=== PATIENT | male | born 1955 | race Caucasian/White ===

== ENCOUNTER → 2016-10-10 | Outpatient (CLI) | payer MEDICARE ==
--- NOTE | 2016-10-11 10:00 | ECHOF ---
Referral Reason:R06.09 Dyspnea on exertion MEASUREMENTS -------- HEIGHT: 188.0 cm WEIGHT: 142.9 kg BP: 116/82 RVIDd: 3.2 cm (< 3.3) IVSd: 1.3 cm (0.6 - 1.1) LVIDd: 6.8 cm (3.9 - 5.3) LVPWd: 1.3 cm (0.6 - 1.1) EDV(Teich): 237 ml IVSs: 1.4 cm LVIDs: 4.9 cm LVPWs: 1.6 cm %IVS Thck: 14 % ESV(Teich): 113 ml EF(Teich): 52 % %FS: 28 % SV(Teich): 124 ml LALs A4C: 5.2 cm LAAs A4C: 13.9 cm LAESV A-L A4C: 31 ml LAESV MOD A4C: 31 ml LALs A2C: 4.6 cm LAAs A2C: 12.5 cm LAESV A-L A2C: 28 ml LAESV MOD A2C: 27 ml LAESV(A-L): 32 ml LAESV Index (A-L): 11.97 ml/m Ao Diam: 4.8 cm (2.0 - 3.7) AV Cusp: 2.3 cm (1.5 - 2.6) LA Diam: 3.8 cm (2.7 - 3.8) MV E Yadiel: 0.49 m/s MV DecT: 347 ms MV Dec Hood: 1.4 m/s MV A Yadiel: 0.74 m/s MV E/A Ratio: 0.67 MV PHT: 101 ms E/E': 7.18 E': 0.07 m/s AV Vmax: 1.10 m/s AV maxP.86 mmHg FINDINGS -------- Resting bradycardia (HR<60bpm). This was a technically adequate study. The left ventricle is moderately dilated. There is mild concentric left ventricular hypertrophy. Overall left ventricular systolic function is low-normal with, an EF between 50 - 55 %. The right ventricle is normal in size and function. Normal LA size by volume 22+/-6 ml/m2. The right atrium is normal in size. Aortic valve is trileaflet and is mildly thickened. There is no evidence of aortic regurgitation. There is no evidence of aortic stenosis. The mitral valve leaflets are mildly thickened. There is trace mitral regurgitation. Trace tricuspid regurgitation present. There is no evidence of pulmonary hypertension. The right ventricular systolic pressure, as measured by Doppler, is {RVSP}. The pulmonic valve was not well visualized. The aortic root is mildy dilate, measuring 4.0 cm. IVC Not well visulized. CONCLUSIONS -------- 1. Resting bradycardia (HR<60bpm). 2. Trace tricuspid regurgitation present. 3. There is no evidence of pulmonary hypertension. 4. The right ventricular systolic pressure, as measured by Doppler, is {RVSP}. 5. The pulmonic valve was not well visualized. 6. The aortic root is mildy dilated. 7. IVC Not well visulized. 8. This was a technically adequate study. 9. The left ventricle is moderately dilated. 10. There is mild concentric left ventricular hypertrophy. 11. Overall left ventricular systolic function is low-normal with, an EF between 50 - 55 %. 12. Normal LA size by volume 22+/-6 ml/m2. 13. Aortic valve is trileaflet and is mildly thickened. 14. The mitral valve leaflets are mildly thickened. 15. There is trace mitral regurgitation. SOCIAL SECURITY ASSESSOR: Patrice Miller RDCS
== END | disposition home or self-care (01) ==
LOC: RADECHMAIN 15:59
PROVIDERS: ATTEND Family Medicine
DX: I51.7 Cardiomegaly (principal)
CPT/HCPCS: 93306

== ENCOUNTER 2017-05-08 07:53 | Day surgery (SDC) | payer MEDICARE ==
[2017-05-06 10:35] VITALS: BMI 36.6
[~2017-05-08 07:53] MED LIST: LACTATED RINGERS 1,000 ML IV SCH
[2017-05-08 09:26] VITALS: TEMP 97.4
[2017-05-08 09:31] LABS: Glucose,Whole Blood 97 mg/dL (75-99)
[2017-05-08] MEDS ORDERED: PROPOFOL 10 MG/ML 20 ML VIAL IV ONE (10:25)
--- NOTE | 2017-05-08 10:52 | P.PCN ---
Date of Procedure: 05/08/17 Procedure(s) Performed: BRIEF HISTORY: Patient is a 61-year-old pleasant white male, scheduled for an elective colonoscopy as a part of value should of prior history of colon polyps. Last colonoscopy was 4 years ago. PROCEDURE PERFORMED: Colonoscopy with snare polypectomy PREOPERATIVE DIAGNOSIS: History of colon polyps. IV sedation per Anesthesia. PROCEDURE: After informed consent was obtained, the patient, was brought into the endoscopy unit. IV sedation was administered by Anesthesia under continuous monitoring. Digital rectal examination was normal. Initially the Olympus CF- 160 flexible video colonoscope was then inserted in the rectum, gradually advanced into the cecum without any difficulty. Careful examination was performed as the scope was gradually being withdrawn. Ileocecal valve and the appendiceal orifice were visualized and appeared normal. Prep was fair. The base of the cecum there was a 1 cm polyp removed by snare polypectomy. The rest of the mucosa of the cecum, ascending colon, transverse colon, appeared normal. In the descending colon there was another 1 cm broad-based polyp removed by snare polypectomy. The rest of the descending colon, sigmoid colon, and rectum appeared normal. Retroflexion was performed in the rectum and no lesions were seen. The patient tolerated the procedure well. IMPRESSION: 1 cm cecal polyp status post snare polypectomy 1 cm descending colon polyp status post polypectomy RECOMMENDATIONS: Findings of this examination were discussed with the patient as his family. He was advised to follow with the biopsy results. If the biopsy shows a tubular adenoma he can have a repeat colonoscopy in 3-5 years.
[2017-05-08 10:57] VITALS: RESP 16
[2017-05-08 11:14] VITALS: BP 125/52; PULSE 59
== END 2017-05-08 11:33 | disposition home or self-care (01) ==
LOC: ORWHC2ENDO 07:53
PROVIDERS: ATTEND Internal Medicine Gastroenterology
DX: Z12.11 Encounter for screening for malignant neoplasm of colon (principal); D12.0 Benign neoplasm of cecum; D12.4 Benign neoplasm of descending colon; I25.10 Atherosclerotic heart disease of native coronary artery without angina pectoris; I25.2 Old myocardial infarction; I10 Essential (primary) hypertension; E78.5 Hyperlipidemia, unspecified; R56.9 Unspecified convulsions; G47.33 Obstructive sleep apnea (adult) (pediatric); K21.9 Gastro-esophageal reflux disease without esophagitis; F39 Unspecified mood [affective] disorder; M10.9 Gout, unspecified; Z86.010 Personal history of colon polyps; Z88.6 Allergy status to analgesic agent; Z88.8 Allergy status to other drugs, medicaments and biological substances; Z79.891 Long term (current) use of opiate analgesic; Z79.899 Other long term (current) drug therapy; Z86.73 Personal history of transient ischemic attack (TIA), and cerebral infarction without residual deficits; Z87.891 Personal history of nicotine dependence
CPT/HCPCS: 45385; 88305; J2704

== ENCOUNTER 2017-10-30 09:47 | Day surgery (SDC) | payer MEDICARE ==
[2017-10-29 10:16] VITALS: BMI 32.1
[2017-10-30 10:57] VITALS: RESP 16; TEMP 98
[2017-10-30] MEDS ORDERED: LIDOCAINE 1% 20 ML VIAL (10MG/ML) FOR IV START INTRADERMA ONE (11:08)
[2017-10-30] MEDS ORDERED: PROPOFOL 10 MG/ML 20 ML VIAL IV ONE (11:31)
--- NOTE | 2017-10-30 11:43 | P.PCN ---
Date of Procedure: 10/30/17 Procedure(s) Performed: BRIEF HISTORY: Patient is a 62-year-old, pleasant, male, scheduled for an upper endoscopy as a part of evaluation of epigastric discomfort, post prior abdominal bloating and chest pain on and off for the last 2 months duration. He has long-standing history of GERD and has been on omeprazole 40 mg twice daily. Because of the upper GI symptoms he scheduled for an upper endoscopy today. PROCEDURE PERFORMED: Esophagogastroduodenoscopy with biopsy. PREOPERATIVE DIAGNOSIS: Abdominal bloating, atypical chest pain and epigastric discomfort of 2 months duration. IV sedation per anesthesia. PROCEDURE: After informed consent was obtained, the patient was brought into the endoscopy unit. IV sedation was administered by Anesthesia under continuous monitoring. Initially the Olympus GIF-140 video endoscope was inserted into the mouth. Esophagus intubated without any difficulty. It was gradually advanced into the stomach and duodenum and carefully examined. The bulb and the second part of the duodenum appeared normal. She's were done from the duodenum to rule out celiac disease. The scope at this time was withdrawn to the stomach, adequately insufflated with air, and upon careful examination, mucosa of the antrum, had a small submucosal polyp that was biopsied. The body, cardia and the fundus appeared normal. There is some changes in the fundus of the stomach consistent portal gastropathy. The scope was then withdrawn into the esophagus. The GE junction was located at 39 cm from the incisors. The esophagus appeared normal. There were no erosions or ulcerations seen, biopsies were done from the esophagus and the patient tolerated the procedure well. IMPRESSION: 1. Mild gastritis and small submucosal antral polyp status post biopsy. 2. No evidence of esophagitis or peptic ulcer. RECOMMENDATIONS: The findings of this examination were discussed with the patient less his family. He will continue with omeprazole 40 mg twice daily and follow antireflux measures. He was advised to follow with the biopsy results..
[2017-10-30 12:10] VITALS: BP 132/80; PULSE 49
== END 2017-10-30 12:30 | disposition home or self-care (01) ==
LOC: ORWHC2ENDO 09:47
PROVIDERS: ATTEND Internal Medicine Gastroenterology
DX: K29.80 Duodenitis without bleeding (principal); K31.7 Polyp of stomach and duodenum; J44.9 Chronic obstructive pulmonary disease, unspecified; K21.9 Gastro-esophageal reflux disease without esophagitis; I25.10 Atherosclerotic heart disease of native coronary artery without angina pectoris; I25.2 Old myocardial infarction; I10 Essential (primary) hypertension; K29.70 Gastritis, unspecified, without bleeding; Z88.6 Allergy status to analgesic agent; Z88.8 Allergy status to other drugs, medicaments and biological substances; Z86.73 Personal history of transient ischemic attack (TIA), and cerebral infarction without residual deficits; Z79.891 Long term (current) use of opiate analgesic; Z79.899 Other long term (current) drug therapy
CPT/HCPCS: 88305; 43239; J2704

== ENCOUNTER → 2018-07-21 | Outpatient (CLI) | payer MEDICARE ==
[2018-07-15 17:12] VITALS: BMI 38.0
[2018-07-21 11:30] VITALS: BP 131/83; PULSE 48; RESP 18
--- NOTE | 2018-07-21 12:13 | P.CONS ---
History of Present Illness - Reason for Consult Consult date: 07/21/18 - Chief Complaint Occipital headache, neck and right arm pain, low back pain - History of Present Illness This is a 63-year-old gentleman with chronic history of neck and lower back pain and occipital headache. The patient's worst pain at this point is the occipital headache that radiates to the front and gets worse by neck movement. He had actually the nerve block previously which helped this headache temporarily he also has occasional neck pain with radiation to the right arm down to the right hand with numbness and tingling in the right hand. The patient has a history of stroke previously with weakness in his right arm and leg. He is on no anticoagulants though because of previous episode of GI bleed. His lower back pain occasionally goes down both legs however it is mostly concentrated in his lower back. And this pain increases by ambulation. The patient uses MS Contin 30 mg twice a day and he gets that from his primary care physician. Review of Systems Constitutional: Reports chronic headaches, Reports chronic pain Cardiovascular: Reports high blood pressure Respiratory: Denies cough Gastrointestinal: Reports heartburn Musculoskeletal: Reports as per HPI Neurological: Reports as per HPI Past Medical History Past Medical History: Asthma, COPD, CVA/TIA, GERD/Reflux, GI Bleed, Hypertension, Memory Impairment, Myocardial Infarction (VA), Osteoarthritis (OA), Respiratory Disorder, Seizure Disorder, Sleep Apnea/CPAP/BIPAP Additional Past Medical History / Comment(s): Hx of stroke & multiple TIA's- affected memory, Hx of seizures x2 ( states years ago)., diverticulitis, states 2 VA's., Sleep Apnea- no machine, bleeding stomach ulcer, Gout, multiple levels of herniated discs, Enlarged prostate. States hx of exposure to a chemical -Tr imethylamine Cloride prior to CVA/TIA's., Hx. of macrocytosis, frequent headaches, currently doing cardiac rehab due to low cardiac function & to build up strength Last Myocardial Infarction Date:: 2004 History of Any Multi-Drug Resistant Organisms: None Reported Past Surgical History: Heart Catheterization, Orthopedic Surgery Additional Past Surgical History / Comment(s): Parathyroid gland removal, colonoscopies, right knee surgery x3, right arm surgery x2, EGD x2, right rotator cuff repair, multiple heart caths Past Anesthesia/Blood Transfusion Reactions: Previous Problems w/ Anesthesia, Motion Sickness Additional Past Anesthesia/Blood Transfusion Reaction / Comm: heart rate has gotten low w/anesthesia in past Past Psychological History: No Psychological Hx Reported Smoking Status: Former smoker Past Alcohol Use History: None Reported Additional Past Alcohol Use History / Comment(s): quit smoking 10 years ago., smoked 2-3 ppd. Smoked for 30 yrs or more. Past Drug Use History: None Reported - Past Family History Father Family Medical History: Cancer Medications and Allergies Home Medications Medication Instructions Recorded Confirmed Type Allopurinol [Zyloprim] 300 mg PO DAILY 06/24/14 07/15/18 History Furosemide [Lasix] 40 mg PO DAILY 06/24/14 07/15/18 History Morphine Sulfate ER [Ms Contin] 30 mg PO BID 06/24/14 07/15/18 History Simvastatin [Zocor] 40 mg PO HS 06/24/14 07/15/18 History Tamsulosin HCl [Flomax] 0.4 mg PO HS 06/24/14 07/15/18 History Omeprazole [PriLOSEC] 20 mg PO BID 04/24/15 07/15/18 History Metoprolol Succinate [Toprol XL] 12.5 mg PO W/LUNCH 05/06/17 07/15/18 History Acetaminophen [Tylenol Arthritis] 650 mg PO BID 07/15/18 07/15/18 History Diazepam [Valium] 5 mg PO BID 07/15/18 07/15/18 History Melatonin 3 mg PO HS 07/15/18 07/15/18 History Allergies Allergy/AdvReac Type Severity Reaction Status Date / Time Beta-Blockers AdvReac Severe Heart Rate Verified 07/15/18 16:36 (Beta-Adrenergic Bloc & BP drops, Nausea aspirin AdvReac gi bleeding Verified 07/15/18 16:36 Anticonvulsants AdvReac Hypotension Uncoded 07/15/18 16:36 Physical Exam Vitals: Vital Signs Pulse Resp BP Pulse Ox 07/21/18 11:21 48 L 18 131/83 95 - Constitutional General appearance: morbidly obese, obese - Respiratory Respiratory: bilateral: CTA - Cardiovascular Rhythm: regular - Neurologic Neuro exam of the upper extremities showed decreased right wrist flexion to 4 out of 5 but he has normal deep tendon reflex bilaterally. He also has normal deep tendon reflexes in the lower extremities bilaterally and normal muscle strength. He has tenderness in the cervical and lumbar paravertebral musculature. He has decreased range of motion of the cervical spine. Straight leg raising test negative bilaterally. Neurologic: CNII-XII intact - Psychiatric Psychiatric: A&O x's 3, appropriate affect, intact judgment & insight Results Results: His cervical spine MRI shows small posterior central and right side C5 6 disc herniation and mild right-sided neural foraminal stenosis at C5 6 level. 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 He also may need cervical epidural steroid injection at the C7-T1 level in the right paramedian approach under fluoroscopic guidance in the future to help with his right arm pain. The patient has no MRI on the lumbar spine all might need to obtain the previous ones however he might also benefit from getting a diagnostic lumbar medial branch block. The patient denies having any surgeries on his cervical or lumbar spines. The above-mentioned procedure was explained to the patient and his questions were answered. I thank Dr. Lau for the referral.
== END | disposition home or self-care (01) ==
LOC: PNWHC3 11:07
PROVIDERS: ATTEND Anesthesiology
DX: M47.812 Spondylosis without myelopathy or radiculopathy, cervical region (principal); M47.816 Spondylosis without myelopathy or radiculopathy, lumbar region; R51 Headache; I69.351 Hemiplegia and hemiparesis following cerebral infarction affecting right dominant side; I25.10 Atherosclerotic heart disease of native coronary artery without angina pectoris; I10 Essential (primary) hypertension; I25.2 Old myocardial infarction; J44.9 Chronic obstructive pulmonary disease, unspecified; K21.9 Gastro-esophageal reflux disease without esophagitis; M19.90 Unspecified osteoarthritis, unspecified site; G47.30 Sleep apnea, unspecified; N40.0 Benign prostatic hyperplasia without lower urinary tract symptoms; F11.20 Opioid dependence, uncomplicated; G40.909 Epilepsy, unspecified, not intractable, without status epilepticus; E66.01 Morbid (severe) obesity due to excess calories; Z87.891 Personal history of nicotine dependence; Z98.890 Other specified postprocedural states; Z88.6 Allergy status to analgesic agent; Z88.8 Allergy status to other drugs, medicaments and biological substances; Z79.899 Other long term (current) drug therapy
CPT/HCPCS: 99211

== ENCOUNTER 2018-07-27 05:53 | Day surgery (SDC) | payer MEDICARE ==
[2018-07-22 14:11] VITALS: BMI 38.1
[2018-07-27 06:11] VITALS: TEMP 97.1
[2018-07-27] MEDS: LACTATED RINGERS 1,000 ML IV SCH ×2 (06:26→06:53)
[2018-07-27] MEDS ORDERED: LIDOCAINE 1% 20 ML VIAL (10MG/ML) FOR IV START INTRADERMA ONE (06:26)
[2018-07-27 06:28] LABS: Glucose,Whole Blood 90 mg/dL (75-99)
[2018-07-27] MEDS ORDERED: IV FLUID CONTINUATION 750 ML IV ONE (07:22)
--- NOTE | 2018-07-27 07:23 | P.PCN ---
Date of Procedure: 07/27/18 Procedure(s) Performed: PREOPERATIVE DIAGNOSIS: 1-Cervical Spondylosis with Facet Arthropathy.without myelopathy. 2-cervical degenerative disc disease. 3-cervicogenic headache POSTOPERATIVE DIAGNOSIS: Same as preop diagnosis PROCEDURES: Diagnostic bilateral C2-3 C3-4,medial branch blocks, with fluoroscopic guidance. Bilateral 3rd occipital nerve block under fluoroscopy guidance ANESTHESIA: Local with 1% lidocaine; moderate sedation with Versed. 2 mg , EBL: Minimal PROCEDURE INDICATION: The patient with neck pain secondary to cervical arthropathy unresponsive to more conservative treatments. PROCEDURE DESCRIPTION / TECHNIQUE: The patient was seen and identified in the preoperative area. Risks, benefits, complications, and alternatives were discussed with the patient, the patient agreed to proceed with the procedure and signed the consent. IV was started. Vital signs remained stable throughout the procedure. Patient was taken to the OR and time out was completed. The patient was placed in the prone position on the procedure table. A pillow was placed under the patients chest to increase the cervical interlaminar space. The cervical area was prepped and draped in the usual sterile fashion. Critical pause was taken. Vital signs were closely monitored during the procedure. Conscious sedation was used during the procedure to decrease patients anxiety. Using cross-table lateral fluoroscopy, the centroid of the trapezoid of right C2 ,C3, was identified, marked, and localized with 1% lidocaine 1 ml at each level for skin and Sub Q infiltrations . Subsequently, a 22 G 2 spinal needle was advanced guided by fluoroscopy to the centroid of the trapezoid of Right C2 C3, [place] tip position was confirmed at the centroid of the trapezoids of Right C2 ,C3 ,with anteroposterior fluoroscopy. Subsequently, 1 ml of preservative-free Ropivacaine 0.5% mixed with Depo-medrol 40 mg and half ml of the mixture was injected after negative aspiration for blood and CSF. and then t o do the right third occipital nerve, a 22-gauge needle advanced slowly under fluoroscopy and placed at the center of the facet joint at this formed between the C2 and C3 After needle placement confirmed , and after negative aspiration ropivacaine 0.5% half mL injected after negative aspiration , then the [place] was then removed intact the same procedure was repeated at the left C2-3 ,C3-4, levels, and the left third occipital nerve . COMPLICATIONS: No acute complications. COMMENTS: DISPOSITION / PLANS: The patient was placed in a supine position and transferred to the recovery area in a stable condition for observation and was discharged from the recovery room after meeting discharge criteria. Home discharge instructions given to the patient by the staff. The patient was reexamined prior to discharge. The patient will schedule a follow up in the clinic in 2-4 weeks.
[2018-07-27 07:25] VITALS: RESP 18
[2018-07-27 07:38] VITALS: BP 117/76; PULSE 48
--- NOTE | 2018-07-27 09:00 | FL ---
EXAMINATION TYPE: FL guided pain mgmt statistic DATE OF EXAM: 07/27/2018 HISTORY: Flouroscopy time 9 seconds of fluoroscopy provided. IMPRESSION: 1. Fluoroscopy time.
== END 2018-07-27 07:50 | disposition home or self-care (01) ==
LOC: ORPAIN 05:53
PROVIDERS: ATTEND Specialist
DX: M47.812 Spondylosis without myelopathy or radiculopathy, cervical region (principal); M50.30 Other cervical disc degeneration, unspecified cervical region; R51 Headache; I10 Essential (primary) hypertension; K21.9 Gastro-esophageal reflux disease without esophagitis; J44.9 Chronic obstructive pulmonary disease, unspecified; M19.90 Unspecified osteoarthritis, unspecified site; G40.909 Epilepsy, unspecified, not intractable, without status epilepticus; F11.20 Opioid dependence, uncomplicated; I25.10 Atherosclerotic heart disease of native coronary artery without angina pectoris; I69.311 Memory deficit following cerebral infarction; I69.351 Hemiplegia and hemiparesis following cerebral infarction affecting right dominant side; G47.30 Sleep apnea, unspecified; Z99.89 Dependence on other enabling machines and devices; E16.2 Hypoglycemia, unspecified; I25.2 Old myocardial infarction; N40.0 Benign prostatic hyperplasia without lower urinary tract symptoms; M10.9 Gout, unspecified; E66.01 Morbid (severe) obesity due to excess calories; Z68.38 Body mass index [BMI] 38.0-38.9, adult; Z87.891 Personal history of nicotine dependence; Z79.899 Other long term (current) drug therapy; Z88.6 Allergy status to analgesic agent; Z88.8 Allergy status to other drugs, medicaments and biological substances; Z80.9 Family history of malignant neoplasm, unspecified
CPT/HCPCS: 64490; 64491; 64450; J2250; J1030; 99152

== ENCOUNTER 2018-08-10 06:32 | Day surgery (SDC) | payer MEDICARE ==
[2018-08-05 15:12] VITALS: BMI 37.8
[2018-08-10 07:20] VITALS: RESP 18; TEMP 97.6
[2018-08-10] MEDS ORDERED: LIDOCAINE 1% 20 ML VIAL (10MG/ML) FOR IV START INTRADERMA ONE (07:31)
--- NOTE | 2018-08-10 08:44 | P.PCN ---
Date of Procedure: 08/10/18 Procedure(s) Performed: PREOPERATIVE DIAGNOSIS: 1-Cervical Spondylosis with Facet Arthropathy.without myelopathy. 2-cervical degenerative disc disease. 3-cervicogenic headache POSTOPERATIVE DIAGNOSIS: Same as preop diagnosis PROCEDURES: Diagnostic bilateral C2-3 C3-4,medial branch blocks, with fluoroscopic guidance. ( #2nd ) Bilateral 3rd occipital nerve block under fluoroscopy guidance ANESTHESIA: Local with 1% lidocaine; moderate sedation with Versed. 2 mg , EBL: Minimal PROCEDURE INDICATION: The patient with neck pain secondary to cervical arthropathy unresponsive to more conservative treatments. PROCEDURE DESCRIPTION / TECHNIQUE: The patient was seen and identified in the preoperative area. Risks, benefits, complications, and alternatives were discussed with the patient, the patient agreed to proceed with the procedure and signed the consent. IV was started. Vital signs remained stable throughout the procedure. Patient was taken to the OR and time out was completed. The patient was placed in the prone position on the procedure table. A pillow was placed under the patients chest to increase the cervical interlaminar space. The cervical area was prepped and draped in the usual sterile fashion. Critical pause was taken. Vital signs were closely monitored during the procedure. Conscious sedation was used during the procedure to decrease patients anxiety. Using cross-table lateral fluoroscopy, the centroid of the trapezoid of right C2 ,C3, was identified, marked, and localized with 1% lidocaine 1 ml at each level for skin and Sub Q infiltrations . Subsequently, a 22 G 2 spinal needle was advanced guided by fluoroscopy to the centroid of the trapezoid of Right C2 C3, [place] tip position was confirmed at the centroid of the trapezoids of Right C2 ,C3 ,with anteroposterior fluoroscopy. Subsequently, 1 ml of preservative-free Ropivacaine 0.5% mixed with Depo-medrol 40 mg and half ml of the mixture was injected after negative aspiration for blood and CSF. and then to do the right third occipital nerve, a 22-gauge needle advanced slowly under fluoroscopy and placed at the center of the facet joint at this formed between the C2 and C3 After needle placement confirmed , and after negative aspiration ropivacaine 0.5% half mL injected after negative aspiration , then the [place] was then removed intact the same procedure was repeated at the left C2-3 ,C3-4, levels, and the left third occipital nerve . COMPLICATIONS: No acute complications. DISPOSITION / PLANS: The patient was placed in a supine position and transferred to the recovery area in a stable condition for observation and was discharged from the recovery room after meeting discharge criteria. Home discharge instructions given to the patient by the staff. The patient was reexamined prior to discharge. The patient will schedule a follow up in the clinic in 2-4 weeks.
[2018-08-10 09:11] VITALS: BP 116/61; PULSE 49
--- NOTE | 2018-08-10 10:50 | FL ---
Fluoroscopy HISTORY: Pain 9 seconds fluoroscopy time supplied to the referring clinician. 2 intraoperative C-arm images docume nt the procedure. See dictated report from anesthesia.
== END 2018-08-10 09:23 | disposition home or self-care (01) ==
LOC: ORPAIN 06:32
PROVIDERS: ATTEND Specialist
DX: M47.812 Spondylosis without myelopathy or radiculopathy, cervical region (principal); M50.30 Other cervical disc degeneration, unspecified cervical region; M79.18 Myalgia, other site; Z88.6 Allergy status to analgesic agent; Z88.8 Allergy status to other drugs, medicaments and biological substances
CPT/HCPCS: 64490; 64491; J2250; J3301; 99152

== ENCOUNTER → 2018-08-23 | Outpatient (CLI) | payer MEDICARE ==
[2018-08-23 15:02] VITALS: BP 127/74; PULSE 72; RESP 16
--- NOTE | 2018-08-23 16:00 | P.PAINPG ---
Subjective Progress Note Date: 08/23/18 This is a 63-year-old gentleman with chronic history of neck and lower back pain and occipital headache. The patient's worst pain at this point is the occipital headache that radiates to the front and gets worse by neck movement. He returns today for follow-up following bilateral C2-3 and 34 medial branch blocks 2. He reports 95% relief of his pain complaints for about a week after each procedure. He would like to proceed with radiofrequency ablation. Pain is similar in character and nature as prior pain complaints. It is located in bilateral neck radiating up bilateral occipital areas into head. The patient uses MS Contin 30 mg twice a day and he gets that from his primary care physician. Review of systems is negative for new numbness, weakness, tingling, bowel or bladder incontinence, fevers, chills, night sweats. Physical exam: Vitals: Reviewed in EMR GENERAL: Well appearing, in no acute distress PSYCH: Mood and affect is appropriate. Awake, alert, and oriented SKIN: Skin color, texture, turgor normal, no rashes or lesions HEENT: Normocephalic, atraumatic. EOM intact CV: No pedal edema RESP: Respirations are unlabored, no audible wheezing GI: Abdomen non-distended MUSCULOSKELETAL: Bilateral upper and lower extremity strength is normal and symmetric. No atrophy or tone abnormalities are noted. Neck: Mild tenderness to palpation over the cervical paraspinous muscles. Spurling negative, cervical facet loading positive, Mendoza's sign negative. No pain with neck flexion, extension, or lateral flexion. No obvious deformity or signs of trauma. Normal cervical lordotic curve and normal cervical spine range of motion Extremities: Peripheral joint ROM is full and pain free without obvious instability or laxity in all four extremities. No edema or skin discolorations noted. Tone is grossly 5 out of 5 throughout except right biceps which is 4 out of 5 in flexion. NEUR: Bilateral upper extremity coordination and muscle stretch reflexes are physiologic and symmetric. No loss of sensation is noted. Results Results: His cervical spine MRI shows small posterior central and right side C5 6 disc herniation and mild right-sided neural foraminal stenosis at C5 6 level. 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 The above-mentioned procedure was explained to the patient and his questions were answered. Objective - Vital Signs Vital signs: Vital Signs Temp Pulse 72 08/23/18 14:55 Resp 16 08/23/18 14:55 BP 127/74 08/23/18 14:55 Pulse Ox Intake & Output 08/22/18 08/23/18 08/23/18 18:59 06:59 18:59 Weight 133.81 kg PQRS Measure Charge Sheet Measure #130: Documentation of Current Meds in Medical Chart: Patient's medications documented in chart Measure #226: Tobacco Use: Screen & Cessation Intervention: Pt not a tobacco user Measure #111: Pneumonia Vaccination: Pneumococcal vaccine administered or previously received Measure #47: Advance Care Plan: Advance care planning discussed & documented, pt chose/unable to give Measure #412: Opioid Treatment Agreement: No documentation of signed opioid treatment agreement Measure #317: Preventitive Care & Scrn High Bld Press & F/U: Normal blood pressure, f/u not required Measure #128: Body Mass Index (BMI) Screening & Follow-up: BMI documented ABOVE normal parameters - f/u documented Measure #131: Pain Assessment & Follow-up: Pain positive & plan documented, Follow-up scheduled Measure #431: Unhealthy Alcohol Use Preventative Care & Scrn: Patient not identified as an unhealthy alcohol user PQRS Narrative: Smoking Status Former smoker Blood Pressure 127/74 Pain Intensity [Bilateral 5 Posterior Neck] Scale Used Numeric (1 - 10) Hx Alcohol Use (MH) No Home Medications: Ambulatory Orders Allopurinol [Zyloprim] 300 mg PO DAILY 06/24/14 Furosemide [Lasix] 40 mg PO DAILY 06/24/14 Morphine Sulfate ER [Ms Contin] 30 mg PO BID 06/24/14 Simvastatin [Zocor] 40 mg PO HS 06/24/14 Tamsulosin HCl [Flomax] 0.4 mg PO HS 06/24/14 Omeprazole [PriLOSEC] 20 mg PO BID 04/24/15 Metoprolol Succinate [Toprol XL] 12.5 mg PO 1000 05/06/17 Acetaminophen [Tylenol Arthritis] 650 mg PO BID 07/15/18 Diazepam [Valium] 5 mg PO BID 07/15/18 Melatonin 5 mg PO HS 07/15/18 Controlled Substance Measures - Controlled Substance Measures Is patient prescribed a controlled substance at discharge?: No
== END ==
LOC: PNWHC3 13:55
PROVIDERS: ATTEND Anesthesiology
DX: M47.812 Spondylosis without myelopathy or radiculopathy, cervical region (principal); M47.816 Spondylosis without myelopathy or radiculopathy, lumbar region; I69.351 Hemiplegia and hemiparesis following cerebral infarction affecting right dominant side; I25.10 Atherosclerotic heart disease of native coronary artery without angina pectoris; E66.01 Morbid (severe) obesity due to excess calories; F11.20 Opioid dependence, uncomplicated; R51 Headache; Z87.891 Personal history of nicotine dependence; Z79.899 Other long term (current) drug therapy; Z79.891 Long term (current) use of opiate analgesic
CPT/HCPCS: 99211

== ENCOUNTER 2018-08-31 06:04 | Day surgery (SDC) | payer MEDICARE ==
[2018-08-26 15:43] VITALS: BMI 38.7
[2018-08-31 06:40] VITALS: RESP 20; TEMP 97.2
[2018-08-31] MEDS: LACTATED RINGERS 1,000 ML IV SCH ×2 (06:48→06:52)
[2018-08-31] MEDS ORDERED: IV FLUID CONTINUATION 1,000 ML IV ONE (08:11)
--- NOTE | 2018-08-31 08:21 | P.PCN ---
Date of Procedure: 08/31/18 Procedure(s) Performed: PREOPERATIVE DIAGNOSIS: Cervical spondylosis POSTOPERATIVE DIAGNOSIS: Same PROCEDURES: Radiofrequency thermocoagulation of the third occipital nerve, C3, C4 medial branches with fluoroscopic guidance on the right side which corresponds to the C2-3 and C3-4 facets SURGEON: Gale Desai M.D. ANESTHESIA: Moderate sedation with intravenous versed and fentanyl and local infiltration with lidocaine 1% 5 ml Fluoroscopy was used for the procedure and fluoroscopic images were saved to the radiology portion of patient's chart. EBL: Minimal PROCEDURE INDICATION: The patient with low back pain secondary to cervical facet arthropathy who had more than 50% relief of pain with previous diagnostic cervical medial branch block. PROCEDURE DESCRIPTION / TECHNIQUE: The patient was seen and identified in the preoperative area. Risks, benefits, complications, including but not limited to risk of infection ,bleeding , allergic reactions to the medications and incomplete pain relief , and alternatives were discussed with the patient, the patient agreed to proceed with the procedure and signed the consent. IV was started. The operative site was marked. Patient was taken to the OR and time out was completed. The patient was placed in the prone position on the procedure table. The cervical area was prepped and draped in the usual sterile fashion. . Vital signs were closely monitored during the procedure .IV sedation was used during the procedure to decrease patients anxiety. Using AP and lateral fluoroscopy, a 25-gauge 3 inch finder needle was placed at the centroid of the first targeted level. Then, using AP and then oblique fluoroscopy, the waist corresponding to the connection between the superior and transverse articular processes of the C2, C3, C4 were identified, marked, and localized with 1% lidocaine. Subsequently, an 18 [id number] radiofrequency cannula with a 10-mm active tip was advanced guided by fluoroscopy to the midpoint of the centroid on the lateral view of the C3, C4 vertebral bodies and at the midpoint of the C2-3 facet joint for third occipital nerve. Motor testing was done at 2 Hz and 0 to 3 volt with local stimulation, but no radicular symptoms down the arms. Then the sites underwent radiofrequency thermocoagulation at 80 degrees celsius for 90 seconds after injecting 0.5 ml of PF lidocaine 4%. A second round of radiofrequency ablation was performed after pulling each needle back by 1 mm. for the third occipital nerve, a third round of radiofrequency ablation was performed after advancing the needle more cephalad. Cannulas were removed, the skin was cleansed and bandages were applied. COMPLICATIONS: No acute complications. DISPOSITION / PLANS: The patient was placed in a supine position and transferred to the recovery area in a stable condition for observation and was discharged from the recovery room after meeting discharge criteria. Home discharge instructions given to the patient by the staff. The patient will follow up in clinic in 2-4 weeks.
[2018-08-31 08:35] VITALS: BP 105/61; PULSE 47
--- NOTE | 2018-08-31 10:37 | FL ---
Fluoroscopy HISTORY: Pain 63 seconds fluoroscopy time supplied to the referring clinician. 5 intraoperative C-arm images docum ent the procedure. See dictated report from anesthesia.
== END 2018-08-31 08:59 | disposition home or self-care (01) ==
LOC: ORPAIN 06:04
PROVIDERS: ATTEND Anesthesiology
DX: M47.812 Spondylosis without myelopathy or radiculopathy, cervical region (principal); M50.222 Other cervical disc displacement at C5-C6 level; M48.02 Spinal stenosis, cervical region; M47.816 Spondylosis without myelopathy or radiculopathy, lumbar region; G44.89 Other headache syndrome; I69.351 Hemiplegia and hemiparesis following cerebral infarction affecting right dominant side; I25.10 Atherosclerotic heart disease of native coronary artery without angina pectoris; E66.01 Morbid (severe) obesity due to excess calories; Z68.38 Body mass index [BMI] 38.0-38.9, adult; F11.20 Opioid dependence, uncomplicated; Z87.891 Personal history of nicotine dependence; Z79.899 Other long term (current) drug therapy
CPT/HCPCS: 64633; 64634; J2250; J3010; 99153

== ENCOUNTER 2018-09-14 06:48 | Day surgery (SDC) | payer MEDICARE ==
[2018-09-09 09:31] VITALS: BMI 38.7
[2018-09-14 07:25] VITALS: RESP 16; TEMP 96.8
[2018-09-14] MEDS ORDERED: LIDOCAINE 1% 20 ML VIAL (10MG/ML) FOR IV START INTRADERMA ONE (07:29)
[2018-09-14] MEDS ORDERED: LACTATED RINGERS 1,000 ML IV ONE (07:29)
[2018-09-14] MEDS ORDERED: LACTATED RINGERS 1,000 ML IV SCH (09:00)
[2018-09-14 09:23] VITALS: BP 116/70; PULSE 54
[2018-09-14] MEDS ORDERED: IV FLUID CONTINUATION 1,000 ML IV ONE (09:25)
--- NOTE | 2018-09-14 09:35 | P.PCN ---
Date of Procedure: 09/14/18 Procedure(s) Performed: PREOPERATIVE DIAGNOSIS: Cervical spondylosis POSTOPERATIVE DIAGNOSIS: Same PROCEDURES: Radiofrequency thermocoagulation, [edial branch, with fluoroscopic guidance. Left TON C2, C3 SURGEON: Emerson Freitas MD. ANESTHESIA: Moderate sedation with versed and fentayl a EBL: Minimal PROCEDURE INDICATION: The patient has cervical facet arthropathy who had more than 50% relief of pain with previous diagnostic cervical medial branch block. PROCEDURE DESCRIPTION / TECHNIQUE: The patient was seen and identified in the preoperative area. Risks, benefits, complications, including but not limited to risk of infection ,bleeding , allergic reactions to the medications and no complete pain releife , and alternatives were discussed with the patient, the patient agreed to proceed with the procedure and signed the consent. IV was started. The operative site was marked. Patient was taken to the OR and time out was completed. The patient was placed in the prone position on the procedure table. The cervical area was prepped and draped in the usual sterile fashion. . Vital signs were closely monitored during the procedure .IV sedation was used during the procedure to decrease patients anxiety. Using AP and then oblique fluoroscopy, the waist corresponding to the connection between the superior and transverse articular processes of the above-mentioned levels were identified, marked, and localized with 1% lidocaine. Subsequently, a 18 [id number] radiofrequency cannula with a 10-mm active tip was advanced guided by fluoroscopy to the midpoint of the trapezoid formed on the lateral view of the cervical vertebral bodies at each site then underwent sensory testing at 50 Hz and 0 to 1 volt and motor testing at 2.5 Hz and 0 to 3 volt with local stimulation, but no radicular symptoms down the arms. Then the sites underwent radiofrequency thermocoagulation at 80 degrees Celsius for 90 seconds after injecting 0.5 ml of PF bupivicaine .5%. then After the thermocoagulation done , 1 ml of the block solution containing depomedrol 40 mg and 3 ml of maraine 0.5% was injected at each levels after negative aspiration of CSF and blood and with no paresthesias. Cannulas were retracted. At the end of the procedure, the skin was cleansed and bandages were applied. COMPLICATIONS: No acute complications. DISPOSITION / PLANS: The patient was placed in a supine position and transferred to the recovery area in a stable condition for observation and was discharged from the recovery room after meeting discharge criteria. Home discharge instructions given to the patient by the staff.
--- NOTE | 2018-09-14 10:08 | FL ---
EXAMINATION TYPE: Fluoroscopy DATE OF EXAM: 09/14/2018 HISTORY: Flouroscopy time 9 seconds of fluoroscopy provided. IMPRESSION: 1. Fluoroscopy time.
== END 2018-09-14 09:38 | disposition home or self-care (01) ==
LOC: ORPAIN 06:48
PROVIDERS: ATTEND Student in an Organized Health Care Education/Training Program
DX: M47.812 Spondylosis without myelopathy or radiculopathy, cervical region (principal)
CPT/HCPCS: 64633; 64634; J2250; J1030; J3010; 99152

== ENCOUNTER → 2018-10-05 | Outpatient (CLI) | payer MEDICARE ==
[2018-10-05 12:51] VITALS: BP 134/87; PULSE 66; RESP 16
--- NOTE | 2018-10-05 15:44 | P.PAINPG ---
Subjective Progress Note Date: 10/05/18 Patient is a 63-year-old male who presents to follow-up after right followed by left cervical RFA. He states that the right RFA was significantly more painful than the left and he continues to have pain on the right side. His right-sided RFA has been within the past month. He does report some pain relief on the left side. Otherwise he reports no changes in his medical history. He does state that occipital nerve blocks in the past been more helpful to him. He continues to prescribe MS Contin by his primary care physician. Objective - Vital Signs Vital signs: Vital Signs Temp Pulse 66 10/05/18 12:44 Resp 16 10/05/18 12:44 BP 134/87 10/05/18 12:44 Pulse Ox 96 10/05/18 12:44 Intake & Output 10/04/18 10/05/18 10/05/18 18:59 06:59 18:59 Weight 140.614 kg - Exam Vital Signs: Reviewed in EMR GENERAL: Well appearing, in no acute distress, PSYCH: Mood and affect is appropriate. Awake, alert, and oriented SKIN: Skin color, texture, turgor normal, no rashes or lesions HEENT: Normocephalic, atraumatic. EOM intact CV: No pedal edema RESP: Respirations are unlabored, no audible wheezing GI: Abdomen non-distended MUSCULOSKELETAL: Bilateral upper and lower extremity strength is normal and symmetric. No atrophy or tone abnormalities are noted. Neck: Tender to palpation over cervical paraspinals. . No pain with neck flexion, extension, or lateral flexion. No obvious deformity or signs of trauma. Normal cervical lordotic curve and slightly reduced cervical spine range of motion Gait: Gait is anantalgic NEUR: Bilateral upper and lower extremity coordination and muscle stretch reflexes are physiologic and symmetric. Negative clonus. No loss of sensation is noted. Cranial nerves are grossly intact. Assessment and Plan Assessment: Assessment: 1. Cervical spondylosis 2. Myofascial pain 3. Chronic opiate use 4. Obesity Plan: 1. Explanation: I explained to him that he may be experiencing posterior RFA neuritis on the right side, this would be expected to get better over time. He does not have any focal neurological deficits. 2. Opioid agreement: None 3. Counseling: The patient was counseled extensively on BODY MASS INDEX, EXERCISE. Specifically, the patient was instructed regarding the importance of weight control, and exercise in the context of both chronic pain and overall health. 4. Procedures: At this time. He will be seen in follow-up in our clinic at that time can decide to do cervical trigger point injections versus repeat occipital nerve blocks as he has had good relief with that in the past. 5. Consultations: None 6. Investigations: None 7. Medications: We are not prescribing medications for him 8. Disposition: Follow-up in 4-8 weeks to discuss this cervical trigger point injections versus repeat occipital nerve blocks. , PQRS Measure Charge Sheet Measure #226: Tobacco Use: Screen & Cessation Intervention: Pt not a tobacco user Measure #111: Pneumonia Vaccination: Pneumococcal vaccine administered or previously received Measure #47: Advance Care Plan: Advance care planning discussed & documented, pt chose/unable to give Measure #131: Pain Assessment & Follow-up: Pain positive & plan documented, Follow-up scheduled Measure #431: Unhealthy Alcohol Use Preventative Care & Scrn: Patient not identified as an unhealthy alcohol user PQRS Narrative: Smoking Status Former smoker Blood Pressure 134/87 Pain Intensity [Bilateral Neck 8 ] Scale Used Numeric (1 - 10) Hx Alcohol Use (MH) No Home Medications: Ambulatory Orders Allopurinol [Zyloprim] 300 mg PO DAILY 06/24/14 Furosemide [Lasix] 40 mg PO DAILY 06/24/14 Morphine Sulfate ER [Ms Contin] 30 mg PO TID 06/24/14 Simvastatin [Zocor] 40 mg PO HS 06/24/14 Tamsulosin HCl [Flomax] 0.4 mg PO HS 06/24/14 Omeprazole [PriLOSEC] 20 mg PO BID 04/24/15 Metoprolol Succinate [Toprol XL] 12.5 mg PO 1000 05/06/17 Acetaminophen [Tylenol Arthritis] 650 mg PO BID 07/15/18 Diazepam [Valium] 5 mg PO BID 07/15/18 Melatonin 5 mg PO HS 07/15/18 Controlled Substance Measures - Controlled Substance Measures Is patient prescribed a controlled substance at discharge?: No
== END | disposition home or self-care (01) ==
LOC: PNWHC3 12:31
PROVIDERS: ATTEND Student in an Organized Health Care Education/Training Program
DX: M54.2 Cervicalgia (principal); M47.812 Spondylosis without myelopathy or radiculopathy, cervical region; M79.18 Myalgia, other site; F11.20 Opioid dependence, uncomplicated; E66.9 Obesity, unspecified; Z79.899 Other long term (current) drug therapy; Z87.891 Personal history of nicotine dependence
CPT/HCPCS: 99211

== ENCOUNTER → 2018-12-23 | Outpatient (CLI) | payer MEDICARE ==
--- NOTE | 2018-12-23 14:58 | CTL ---
EXAMINATION TYPE: CT Low Dose Lung DATE OF EXAM ORDERED: 12/23/2018 HISTORY: 63-year-old male Personal hx of tobacco use. Lung cancer screening CT DLP: 147.[address] CTDI: 4.0 mGy Automated exposure control for dose reduction was used. SCREENING VISIT: Baseline COMPARISON: None TECHNIQUE: Low dose computed tomography scan was performed through the chest at 1 mm thick sections a nd reconstructed images in the coronal/sagittal plane. Additional coronal MIP reconstruction performe d. CT DIAGNOSTIC QUALITY: Satisfactory FINDINGS: Heart normal size with trace anterior basilar pericardial fluid. Scattered LAD calcifications and cir cumflex artery calcifications. Mildly aneurysmal ascending aorta 4.1 cm. Conventional arch vessel branching anatomy. Mild atheroscle rotic arch calcifications. Aneurysm upper descending thoracic aorta at 3.7 cm. Borderline to mildly enlarged caliber to the main right and left pulmonary arteries are 2.7 and 2.6 c m, respectively, suggesting underlying pulmonary arterial hypertension. No thoracic lymphadenopathy by CT size criteria. A few small calcified right tracheobronchial angle a nd right hilar lymph nodes compatible with prior granulomatous disease. Mild diffuse bronchial wall thickening. Moderate centrilobular emphysema. Calcified granuloma peripheral right upper lobe. A 7 mm anterior right midlung pulmonary nodule near the minor fissure, axial image 161. 4 mm right middle lobe pulmonary nodule, axial image 184. 3 mm left midlung pulmonary nodule, axial image 147 is located along the major fissure, likely intraf issural lymph node. 6 mm left midlung pulmonary nodule, axial image 169. Strandy scarring or atelectasis at the lung bases. No consolidation or pleural effusion. Visualized upper abdomen is limited by low-dose CT technique, noise artifacts, and lack of contrast. The gallbladder appears hydropic at 4.2 cm wide. Bones: Endplate spondylosis lower thoracic spine. IMPRESSION: 1. LungRADS 3, probably benign; scattered pulmonary nodules measuring up to 7 mm at baseline. 2. COPD with mild to moderate emphysema. Possible underlying pulmonary arterial hypertension. 3. Aneurysmal thoracic aorta (ascending 4.1 cm and upper descending 3.7 cm). 4. Prior granulomatous disease. 4. Hydropic gallbladder. RECOMMENDATION: 1. Six-month follow-up low-dose CT chest for reassessment of pulmonary nodules measuring up to 7 mm. 2. Correlate for any right upper quadrant pain. The gallbladder hydrops may relate to fasting state. If right upper quadrant pain or concern for early acute cholecystitis, follow-up ultrasound or HIDA s can. 3. Smoking cessation. FOLLOW UP CT CHEST RECOMMENDATION: [address] LUNG RAD: Lung-Rad 3 Probably Benign
== END | disposition home or self-care (01) ==
LOC: RADCTMAIN 13:09
PROVIDERS: ATTEND Family Medicine
DX: J43.2 Centrilobular emphysema (principal); R91.8 Other nonspecific abnormal finding of lung field; D71 Functional disorders of polymorphonuclear neutrophils; Z87.891 Personal history of nicotine dependence

== ENCOUNTER → 2018-12-24 | Outpatient (CLI) | payer MEDICARE ==
--- NOTE | 2018-12-24 08:23 | US ---
EXAMINATION TYPE: US duplex aorta DATE OF EXAM: 12/24/2018 COMPARISON: NONE CLINICAL HISTORY: I71.4 abdominal aortic aneurysm. Patient states having an aneurysm. EXAM MEASUREMENTS: Abdominal Aorta: Proximal: Not visualized due to overlying bowel gas Mid: 1.8 x 2.2 cm Distal: 1.6 x 1.2 cm Bifurcation: Right- 0.8 x 1.0 cm Left- 0.8 x 1.1 cm Proximal aorta obscured by overlying bowel gas. No AAA visualized at this time. IMPRESSION: No sonographic evidence of abdominal aortic aneurysm in the visualized portions of the ab dominal aorta.
== END | disposition home or self-care (01) ==
LOC: RADUSWWP 07:58
PROVIDERS: ATTEND Family Medicine
DX: I71.4 Abdominal aortic aneurysm, without rupture (principal)
CPT/HCPCS: 93979

== ENCOUNTER → 2018-12-27 | Outpatient (CLI) | payer MEDICARE ==
[2018-12-27 13:28] VITALS: BP 161/100; PULSE 66; RESP 16
--- NOTE | 2018-12-27 15:09 | P.PAINPG ---
Subjective Progress Note Date: 12/27/18 This is a 63-year-old male who presents for follow-up. He has a history of myofascial pain, cervical spondylosis, he's had RFA's of his cervical neck on the right and left side, with good relief on the left side. Headaches have improved since his RFA's. His primary care physician continues to prescribe MS Contin. Today his worst pain is in his buttock and low back area which radiates downward. He does not have a lumbar MRI on file. He is not very interested in nonopiate medication therapy for his pain. Objective - Vital Signs Vital signs: Vital Signs Temp Pulse 66 12/27/18 13:09 Resp 16 12/27/18 13:09 BP 161/100 12/27/18 13:09 Pulse Ox 94 L 12/27/18 13:09 Intake & Output 12/26/18 12/27/18 12/27/18 18:59 06:59 18:59 Weight 145.15 kg - Exam Vital Signs: Reviewed in EMR GENERAL: Well appearing, in no acute distress, PSYCH: Mood and affect is appropriate. Awake, alert, and oriented SKIN: Skin color, texture, turgor normal, no rashes or lesions HEENT: Normocephalic, atraumatic. EOM intact CV: No pedal edema RESP: Respirations are unlabored, no audible wheezing GI: Abdomen non-distended MUSCULOSKELETAL: Bilateral upper and lower extremity strength is normal and symmetric. No atrophy or tone abnormalities are noted. Lumbar spine: Pain to palpation over the lumbar paraspinals Extremities: Peripheral joint ROM is full and pain free without obvious instability or laxity in all four extremities. Gait: Gait is antalgic NEUR: No loss of sensation is noted. Cranial nerves are grossly intact. , Assessment and Plan Assessment: Assessment: 1. Myofascial pain 2. Possible SI joint dysfunction 3. Chronic opiate use prescribed by his PCP 4. Obesity Plan: 1. Explanation: I explained to him since he essentially has whole body pain, interventional pain techniques work less effectively 2. Opioid agreement: None 3. Counseling: The patient was counseled extensively on BODY MASS INDEX, EXERCISE. Specifically, the patient was instructed regarding the importance of weight control, and exercise in the context of both chronic pain and overall health. 4. Procedures: At this time we will reevaluate after the lumbar MRI 5. Consultations: None 6. Investigations: Lumbar MRI ordered 7. Medications: Encouraged patient to have discussions with primary care physician. I did offer Cymbalta and topiramate and other neuropathic agents however he was not interested 8. Disposition: After his lumbar MRI , PQRS Measure Charge Sheet Measure #226: Tobacco Use: Screen & Cessation Intervention: Pt not a tobacco user Measure #47: Advance Care Plan: Advance care planning discussed & documented, pt chose/unable to give Measure #131: Pain Assessment & Follow-up: Pain positive & plan documented, Follow-up scheduled Measure #431: Unhealthy Alcohol Use Preventative Care & Scrn: Patient not identified as an unhealthy alcohol user PQRS Narrative: Smoking Status Former smoker Blood Pressure 161/100 Pain Intensity [Left Lower 7 Back] Pain Intensity [Head] 7 Scale Used Numeric (1 - 10) Hx Alcohol Use (MH) Yes: Rare Home Medications: Ambulatory Orders Allopurinol [Zyloprim] 300 mg PO DAILY 06/24/14 Furosemide [Lasix] 40 mg PO DAILY 06/24/14 Morphine Sulfate ER [Ms Contin] 30 mg PO TID 06/24/14 Simvastatin [Zocor] 40 mg PO HS 06/24/14 Tamsulosin HCl [Flomax] 0.4 mg PO HS 06/24/14 Metoprolol Succinate [Toprol XL] 12.5 mg PO 1000 05/06/17 Acetaminophen [Tylenol Arthritis] 650 mg PO BID 07/15/18 Diazepam [Valium] 5 mg PO BID 07/15/18 Melatonin 5 mg PO HS 07/15/18 Pantoprazole Sodium [Protonix] 40 mg PO DAILY 12/27/18 Controlled Substance Measures - Controlled Substance Measures Is patient prescribed a controlled substance at discharge?: No
== END | disposition home or self-care (01) ==
LOC: PNWHC3 12:43
PROVIDERS: ATTEND Student in an Organized Health Care Education/Training Program
DX: M79.18 Myalgia, other site (principal); E66.9 Obesity, unspecified; Z68.41 Body mass index [BMI] 40.0-44.9, adult; Z87.891 Personal history of nicotine dependence; Z79.891 Long term (current) use of opiate analgesic; Z79.899 Other long term (current) drug therapy
CPT/HCPCS: 99211

== ENCOUNTER → 2019-01-24 | Outpatient (CLI) | payer MEDICARE ==
[2019-01-24 13:36] VITALS: BP 131/84; PULSE 67; RESP 18
--- NOTE | 2019-01-27 06:59 | P.PAINPG ---
Subjective Progress Note Date: 01/24/19 This is a 63-year-old male who presents for follow-up. He has a history of myofascial pain, cervical spondylosis, he's had RFA's of his cervical neck on the right and left side, with good relief on the left side. Headaches have improved since his RFA's. His primary care physician continues to prescribe MS Contin. Today his worst pain is in his buttock and low back area which radiates downward. at his last visit, a lumbar MRI was ordered, results below. He returns today for follow-up. Today, his primary pain complaint is in the low back region, rated as 10/10, radiating to bilateral buttocks and bilateral posterior thigh with occasional radiation into calves. Pain is about equal bilaterally, present intermittently. He is been to a chiropractor and this helps somewhat. He continues to use opioids, prescribed by primary care physician, this helps. He also has shoulder pain and is scheduled to see a shoulder surgeon soon. Review of systems is negative for chest pain, shortness of breath, new onset weakness, numbness/tingling, abdominal pain, malaise, fever, night sweats, chills, homicidal or suicidal ideation, or bowel or bladder incontinence. Objective - Exam Vital Signs: Reviewed in EMR GENERAL: Well appearing, in no acute distress, overweight, cane by his side PSYCH: Mood and affect is appropriate. Awake, alert, and oriented SKIN: Skin color, texture, turgor normal, no rashes or lesions HEENT: Normocephalic, atraumatic. EOM intact CV: No pedal edema RESP: Respirations are unlabored, no audible wheezing GI: Abdomen non-distended MUSCULOSKELETAL: Bilateral lower extremity strength is normal and symmetric. No atrophy or tone abnormalities are noted. Lumbar spine: Pain to palpation over the lumbar paraspinals, positive facet loading bilaterally, severely restricted lumbar extension Buttocks: Tenderness to palpation along bilateral PSIS, positive Cynthia's test bilaterally, positive sacral thrust bilaterally, positive Usha finger bilaterally Extremities: Peripheral joint ROM is full and pain free without obvious instability or laxity in all four extremities. Gait: Gait is antalgic NEUR: No loss of sensation is noted. Cranial nerves are grossly intact. imaging: MRI lumbar spine done at [facility] on 01/08/2019 shows mild spondylosis at L4-5 with small posterior disc herniations at L4-5 and L5-S1 without significant compromise of the spinal canal. Assessment and Plan Assessment: Assessment: 1. lumbar spondylosis 2. SI joint dysfunction 3. Chronic opiate use prescribed by his PCP 4. Obesity 5. cervical spondylosis, responded well to cervical radial frequency ablation Plan: 1. Explanation: We had a lengthy discussion regarding possible interventional pain procedures including SI joint injections and lumbar facet workup. 2. Opioid agreement: None 3. Counseling: The patient was counseled on BODY MASS INDEX, EXERCISE. Specifically, the patient was instructed regarding the importance of weight control, and exercise in the context of both chronic pain and overall health. 4. Procedures: We'll schedule bilateral SI joint injections. If no benefit from this, would consider lumbar facet workup. 5. Consultations: None, he is scheduled to see Dr. Nava for shoulder pain 6. Investigations: Lumbar MRI reviewed 7. Medications: managed by primary care physician 8. Disposition: For above-mentioned procedure Objective - Vital Signs Vital signs: Vital Signs Temp Pulse 67 01/24/19 13:27 Resp 18 01/24/19 13:27 BP 131/84 01/24/19 13:27 Pulse Ox 97 01/24/19 13:27 PQRS Measure Charge Sheet Measure #130: Documentation of Current Meds in Medical Chart: Patient's medications documented in chart Measure #226: Tobacco Use: Screen & Cessation Intervention: Pt not a tobacco user Measure #111: Pneumonia Vaccination: Pneumococcal vaccine administered or previously received Measure #47: Advance Care Plan: Advance care planning discussed & documented, pt chose/unable to give Measure #412: Opioid Treatment Agreement: No documentation of signed opioid treatment agreement Measure #317: Preventitive Care & Scrn High Bld Press & F/U: Normal blood pressure, f/u not required Measure #128: Body Mass Index (BMI) Screening & Follow-up: BMI documented ABOVE normal parameters - f/u documented Measure #131: Pain Assessment & Follow-up: Pain positive & plan documented, Follow-up scheduled Measure #431: Unhealthy Alcohol Use Preventative Care & Scrn: Patient not identified as an unhealthy alcohol user PQRS Narrative: Smoking Status Former smoker Blood Pressure 131/84 Pain Intensity [Back] 10 Pain Intensity [Neck] 5 Scale Used Numeric (1 - 10) Hx Alcohol Use (MH) No Home Medications: Ambulatory Orders Allopurinol [Zyloprim] 300 mg PO DAILY 06/24/14 Furosemide [Lasix] 40 mg PO DAILY 06/24/14 Morphine Sulfate ER [Ms Contin] 30 mg PO TID 06/24/14 Simvastatin [Zocor] 40 mg PO HS 06/24/14 Tamsulosin HCl [Flomax] 0.4 mg PO HS 06/24/14 Metoprolol Succinate [Toprol XL] 12.5 mg PO 1000 05/06/17 Acetaminophen [Tylenol Arthritis] 650 mg PO BID 07/15/18 Diazepam [Valium] 5 mg PO BID 07/15/18 Melatonin 5 mg PO HS 07/15/18 Omeprazole Magnesium [PriLOSEC OTC] 20 mg PO DAILY 01/20/19 Controlled Substance Measures - Controlled Substance Measures Is patient prescribed a controlled substance at discharge?: No
== END ==
LOC: PNWHC3 12:46
PROVIDERS: ATTEND Anesthesiology
DX: M47.816 Spondylosis without myelopathy or radiculopathy, lumbar region (principal); M53.3 Sacrococcygeal disorders, not elsewhere classified; E66.9 Obesity, unspecified; M47.812 Spondylosis without myelopathy or radiculopathy, cervical region; Z79.891 Long term (current) use of opiate analgesic; Z98.890 Other specified postprocedural states; Z87.891 Personal history of nicotine dependence; Z79.899 Other long term (current) drug therapy
CPT/HCPCS: 99211

== ENCOUNTER → 2019-08-24 | Outpatient (CLI) | payer MEDICARE ==
[2019-08-24 10:48] VITALS: BP 172/72; PULSE 54; RESP 18
--- NOTE | 2019-08-24 11:15 | P.PAINPG ---
Subjective Progress Note Date: 08/24/19 This is a follow-up visit for 64year-old male who presents for follow-up. He is diagnosed with, cervical spondylosis, last year August 2018 we did RFA of the medial branch cervical area at C3, C4 and the third occipital nerve ( to denervate the facet joints at C2 3 and C3 4 ), the neck pain and the Headaches have improved since his RFA's. Patient also complaining of some low back pain which is deep to the buttock and lower extremity. Pain is about equal bilaterally, present intermittently. He is been to a chiropractor and this helps somewhat. He continues to use opioids, prescribed by primary care physician, Review of systems is negative for chest pain, shortness of breath, new onset weakness, numbness/tingling, abdominal pain, malaise, fever, night sweats, chills, homicidal or suicidal ideation, or bowel or bladder incontinence., And currently he reported that most of his problem is severe neck pain and headache and he wished to have same procedure done on his cervical area to help his headache Objective - Vital Signs Vital signs: Vital Signs Temp Pulse 54 L 08/24/19 10:41 Resp 18 08/24/19 10:41 BP 172/72 08/24/19 10:41 Pulse Ox 95 08/24/19 10:41 - Exam Physical Examinations : -Constitutiona : Cooperative , not in acute distress . -HEENT : nech : supple , no Lymphadenopathy , normal thyroid size . : eyes : no ptosis , no icterus, no photophobia . - neurologic : Cranial nerve II to XII intact , no focal neurological deffecit . -psychatric : alert , oriented X 3 , appropriate affect , intact judgment and insight . -Lymphatic : no Lymphadenopathy . - musculoskeltal : Cervical Spine motor stregnth in the deltoid and biceps, normal right side , normal Left side motor stregnth biceps and the wrist extensors normal right side ,normal left side . motor stregnth in the triceps muscle . normal Right side , normal Left side deep tendon reflexes normal at the biceps , normal at Brachioradialis , normal at triceps. cervical facet loading test= Positive Bilaterally Spurling test= positive bilaterally. Neck distraction test= positive bilate rally. Agustin sign= positive bilaterally. Lumber spine moter stegnth lower extremities ,thigh and legs 5/5 Right side , 5/5 Left side deep tendon reflexes : normal Knee Jerk , normal ankle Jerk lumber facet Loading Test =positive Right , positive Left Range of motion of the lumbar spine Flexion 30 degrees, extension 10 degrees strait leg raising test = positive at 30 degree Fabere test= positive Right , and positive LT . Assessment and Plan Plan: Assessment and plan= 1-cervical spondylosis with cervical facet arthropathy without myelopathy. 2-cervicogenic headache. 3-lumbar spondylosis with lumbar facet arthropathy without myelopathy. 4-lumbar herniated disc disease. Patient could benefit from repeat RFA of the medial branch cervical area at C3, C4, and third occipital nerve (To target the facet joint at C2 3 and C3 4 ) 4-chronic and current use of high-risk medication opioid 5-morbid obesity In the future patient could be a good candidate to have diagnostic medial branch block lumbar area,and LESI Time with Patient: Less than 30 PQRS Measure Charge Sheet Measure #130: Documentation of Current Meds in Medical Chart: Patient's medications documented in chart Measure #226: Tobacco Use: Screen & Cessation Intervention: Pt not a tobacco user Measure #111: Pneumonia Vaccination: Pneumococcal vaccine administered or previously received Measure #47: Advance Care Plan: Advance care planning discussed & documented, pt chose/unable to give Measure #412: Opioid Treatment Agreement: No documentation of signed opioid treatment agreement Measure #408: Opioid Therapy Follow-up Evaluation: Patient had NO f/u eval minimum every 3 months during opioid therapy Measure #317: Preventitive Care & Scrn High Bld Press & F/U: Pre-hypertensive or hypertensive BP documented, pt will f/u with PCP Measure #128: Body Mass Index (BMI) Screening & Follow-up: BMI documented ABOVE normal parameters - f/u documented Measure #131: Pain Assessment & Follow-up: Pain positive & plan documented, Follow-up scheduled Measure #431: Unhealthy Alcohol Use Preventative Care & Scrn: Patient not identified as an unhealthy alcohol user PQRS Narrative: Smoking Status Former smoker Blood Pressure 172/72 Pain Intensity [Head] 9 Scale Used Numeric (1 - 10) Hx Alcohol Use (MH) No Home Medications: Ambulatory Orders Allopurinol [Zyloprim] 300 mg PO DAILY 06/24/14 Furosemide [Lasix] 40 mg PO BID 06/24/14 Morphine Sulfate ER [Ms Contin] 30 mg PO TID 06/24/14 Simvastatin [Zocor] 40 mg PO HS 06/24/14 Tamsulosin HCl [Flomax] 0.4 mg PO HS 06/24/14 Metoprolol Succinate [Toprol XL] 25 mg PO DAILY 05/06/17 Acetaminophen [Tylenol Arthritis] 650 mg PO BID 07/15/18 Diazepam [Valium] 5 mg PO BID 07/15/18 Omeprazole Magnesium [PriLOSEC OTC] 40 mg PO BID 01/20/19 Amitiza(Unknown Dose) 2 tab PO DAILY 08/18/19 Meloxicam [Mobic] 15 mg PO TID 08/24/19 Controlled Substance Measures - Controlled Substance Measures Is patient prescribed a controlled substance at discharge?: No
== END | disposition home or self-care (01) ==
LOC: PNWHC3 10:36
PROVIDERS: ATTEND Specialist
DX: M47.812 Spondylosis without myelopathy or radiculopathy, cervical region (principal); M47.816 Spondylosis without myelopathy or radiculopathy, lumbar region; M46.96 Unspecified inflammatory spondylopathy, lumbar region; R51 Headache; E66.01 Morbid (severe) obesity due to excess calories; M51.26 Other intervertebral disc displacement, lumbar region; Z79.891 Long term (current) use of opiate analgesic; Z79.899 Other long term (current) drug therapy
CPT/HCPCS: 99211

== ENCOUNTER 2019-09-13 06:20 | Day surgery (SDC) | payer MEDICARE ==
[2019-09-08 10:33] VITALS: BMI 41.7
[2019-09-13 07:22] VITALS: RESP 16; TEMP 97.1
[2019-09-13] MEDS ORDERED: LIDOCAINE 1% (10MG/ML) FOR IV START INTRADERMA ONE (07:30)
[2019-09-13] MEDS ORDERED: MIDAZOLAM 2 MG/2 ML VIAL ONE (07:46)
[2019-09-13] MEDS ORDERED: ROPIVACAINE 5MG/ML 20ML VIAL ONE (07:46)
[2019-09-13] MEDS ORDERED: LIDOCAINE 1% INJ 10MG/ML (20 ML MDV) ONE (07:46)
[2019-09-13] MEDS ORDERED: IV FLUID CONTINUATION 1,000 ML IV ONE (08:38)
[2019-09-13 08:44] VITALS: PULSE 49
[2019-09-13 08:55] VITALS: BP 147/69
--- NOTE | 2019-09-13 12:21 | P.PCN ---
Date of Procedure: 09/13/19 Description of Procedure: PREOPERATIVE DIAGNOSIS: Cervicalgia POSTOPERATIVE DIAGNOSIS: Same Surgeon: Marc Vanegas M.D. PROCEDURE PERFORMED: Cervical Medial Branch Radiofrequency Ablation, at the following levels: bilateral TON, C3, C4 ANESTHESIA: Lidocaine 1% 5 mL, Moderate sedation with intravenous Versed and fentanyl, sedation time 39 min ESTIMATED BLOOD LOSS: Minimal Fluoroscopy was used for the procedure and images were saved in the radiology portion of the chart. PROCEDURE INDICATION: The patient with neck pain secondary to cervical facet arthropathy who had more than 50% relief of pain with previous diagnostic lumbar medial branch block X2. PROCEDURE DESCRIPTION / TECHNIQUE: The patient was seen and identified in the preoperative area. Risks, benefits, complications, including but not limited to risk of infection ,bleeding , allergic reactions to the medications and incomplete pain relief , and alternatives were discussed with the patient, the patient agreed to proceed with the procedure and signed the consent. IV was started. The operative site was marked. Patient was taken to the OR and time out was completed. The patient was placed in the prone position on the procedure table. The lumbar area was prepped and draped in the usual sterile fashion. . Vital signs were closely monitored during the procedure .IV sedation was used during the procedure to decrease patients anxiety. An AP fluoroscopic district scout executive film was taken to identify the dens, the C2, C3, and C4 vertebral bodies, and the waists of the articular pillars at the aforementioned levels. A pillar (caudal tilt) view was utilized to highlight the waists of the articular pillars at these levels. The skin was prepped with chlorhexidine and draped in the usual sterile fashion. The skin and subcutaneous tissue overlying the above levels were anesthetized using a 25-gauge 1-1/2-inch needle with 1% preservative free lidocaine for a total volume of 1 ml per level. An 18-gauge and 100 mm SMK needle with a 10 mm active tip was advanced, coaxially, in the pillar view until the needle tip was noted to slide into the groove of the articular pillar. A true lateral view was obtained and the needle tips were advanced to cover to the lateral aspect C2-3 joint line [TON], lateral aspect of the articular pillar at right C3 and C4 for corresponding medial branch ablation. The needles were advanced until bony contact was felt and the tip of the SMK needle was confirmed to be in the groove of the right waist of the articular pillars at the aforementioned levels. The needle positions were confirmed with AP and lateral fluoroscopic views. Motor stimulation was then performed at 2 Hz and up to 2V with only paraspinal muscle contraction noted at each level and no upper extremity stimulation. At this point, after negative aspiration, Bupivacaine 0.5% x 0.5 mL was injected at each level prior to radiofrequency ablation. Lesioning was then carried out at 85 degrees Celsius times 90 seconds with 2 cycles per level. Following lesioning the needles were removed. The procedure was then repeated for the left side. COMPLICATIONS: No acute complications. DISPOSITION / PLANS: The patient was placed in a supine position and transferred to the recovery area in a stable condition for observation and was discharged from the recovery room after meeting discharge criteria. Home discharge instructions given to the patient by the staff. The patient will follow up in clinic in 8 weeks.
--- NOTE | 2019-09-13 16:26 | FL ---
EXAMINATION TYPE: FL guided pain mgmt statistic DATE OF EXAM: 09/13/2019 COMPARISON: NONE HISTORY: Cervical pain procedure TECHNIQUE: Fluoroscopy. FINDINGS: Fluoroscopic guidance was provided during procedure performed by Dr. Vanegas. A total of 5 9 seconds of fluoroscopic time was utilized during the procedure and 6 spot images was acquired. Plea se see operative report for additional details. IMPRESSION: As Above.
== END 2019-09-13 09:20 | disposition home or self-care (01) ==
LOC: ORPAIN 06:20
PROVIDERS: ATTEND Anesthesiology
DX: M54.2 Cervicalgia (principal); M47.812 Spondylosis without myelopathy or radiculopathy, cervical region; Z88.6 Allergy status to analgesic agent; Z88.5 Allergy status to narcotic agent; Z88.8 Allergy status to other drugs, medicaments and biological substances; Z91.09 Other allergy status, other than to drugs and biological substances
CPT/HCPCS: 64640; 64633; J2250; J2001; J2795; 99152; 99153

== ENCOUNTER → 2019-10-21 | Outpatient (CLI) | payer MEDICARE ==
--- NOTE | 2019-10-21 08:46 | CTL ---
EXAMINATION TYPE: CT Low Dose Lung DATE OF EXAM ORDERED: 10/21/2019 COMPARISON: 12/23/2018 HISTORY: . Low Dose CT Lung Screening CT DLP: 4.[address] CTDI: 171.8 mGy IV CONTRAST USED: None. SCREENING VISIT: First visit COMPARISON: None. TECHNIQUE: Low dose computed tomography scan was performed through the chest at 1 millimeter thick se ctions and reconstructed images in the coronal plane at [address] DIAGNOSTIC QUALITY: Satisfactory FINDINGS: LUNG NODULES: Stable 6 mm pulmonary nodule right upper lobe image 165. Stable calcified granuloma rig ht upper lobe. Stable 3 mm nodular density left lower lobe image 282. Stable 3 mm nodular density rig ht middle lobe image 186. No new nodules seen LUNGS: COPD: Severity: Mild emphysematous changes noted. Fibrosis: Severity:None Lymph nodes: None Other findings: None RIGHT PLEURAL SPACE: Effusion: None Calcification: None Thickening: None Pneumothorax: None LEFT PLEURAL SPACE: Effusion: None Calcification: None Thickening: None Pneumothorax: None HEART: Heart Size: Mildly enlarged Coronary calcification: Mild Pericardial effusion: None OTHER FINDINGS: Upper abdomen: No significant abnormality Bony thorax: Degenerative changes Supraclavicular region: No significant abnormalityOther: No significant abnormalityI IMPRESSION: Stable left pulmonary nodularity so which is calcified. FOLLOW UP CT CHEST RECOMMENDATION: Follow-up screening in one year. Smoking cessation advised. CT LUNG RAD: LUNG RAD CATEGORY 2 benign
--- NOTE | 2019-10-21 10:15 | USB ---
Reason for exam: clinical finding. Indicated problem(s): pain in the left breast. Physical Findings: Nurse Summary: Patient complains of left nipple achy x 2 months, 1cm nodule left breast 9 o'clock (nurse mj). US Breast LT Technologist: Ramya Morgan Left complete breast ultrasound includes all four quadrants, the retroareolar region and axilla. Finding demonstrates a 0.5 x 0.5 x 0.4cm circular, hyperechoic lesion at 9 o'clock. These results were verbally communicated with the patient and result sheet given to the patient on 10/21/19. ASSESSMENT: Probably benign, BI-RAD 3 RECOMMENDATION: Ultrasound of the left breast in 6 months. Manage patient on a clinical basis.
== END | disposition home or self-care (01) ==
LOC: RADCTMAIN 07:28
PROVIDERS: ATTEND Family Medicine
DX: Z12.2 Encounter for screening for malignant neoplasm of respiratory organs (principal); Z87.891 Personal history of nicotine dependence; R91.8 Other nonspecific abnormal finding of lung field; N64.4 Mastodynia
CPT/HCPCS: 76641; G0297

== ENCOUNTER → 2020-04-03 | Outpatient (CLI) | payer MEDICARE ==
--- NOTE | 2020-04-03 14:55 | MM ---
Reason for exam: clinical finding. Baseline mammogram. Physical Findings: Nurse did not find any significant physical abnormalities on exam. MG 3D Diag Mammo W/Cad LINDA Bilateral CC and MLO view(s) were taken. There are scattered fibroglandular densities. Asymmetric breast tissue left subareolar, flame shaped consistent with gynecomastia. These results were verbally communicated with the patient and result sheet given to the patient on 04/03/20. ASSESSMENT: Benign, BI-RAD 2 RECOMMENDATION: Clinical management of both breasts. Manage patient on a clinical basis.
== END | disposition home or self-care (01) ==
LOC: RADMAMWWP 13:53
PROVIDERS: ATTEND Family Medicine
DX: N63.20 Unspecified lump in the left breast, unspecified quadrant (principal)
CPT/HCPCS: 77066; G0279; 77062

== ENCOUNTER → 2020-12-19 | Outpatient (CLI) | payer MEDICARE ==
--- NOTE | 2020-12-19 15:35 | CTL ---
EXAMINATION TYPE: CT Low Dose Lung DATE OF EXAM ORDERED: 12/19/2020 HISTORY: Z 87.891Personal history tobacco use. Lung cancer screening CT DLP: 145.[address] CTDI: 4.0 mGy Automated exposure control for dose reduction was used. SCREENING VISIT: 3 COMPARISON: Prior exam 10/21/2019 TECHNIQUE: Low dose computed tomography scan was performed through the chest at 1 mm thick sections a nd reconstructed images in multiple planes at 1 mm and [address] DIAGNOSTIC QUALITY: Satisfactory FINDINGS: Stable lung nodules LUNGS: COPD: Severity: Moderate Fibrosis: Severity: Mild Lymph nodes: None Other findings: There is evidence of old granulomatous disease as on prior exam, probable gynecomasti a. Prominence of pulmonary artery could be indicative of pulmonary artery hypertension RIGHT PLEURAL SPACE: Effusion: None Calcification: None Thickening: None Pneumothorax: None LEFT PLEURAL SPACE: Effusion: None Calcification: None Thickening: None Pneumothorax: None HEART: Heart Size: Stable, normal Coronary calcification: Moderate Pericardial effusion: None OTHER FINDINGS: Upper abdomen: Unremarkable Bony thorax: Thoracic spondylosis noted Supraclavicular region: Unremarkable Other: Thoracic aorta is 4.5 cm at the ascending level, axial image #145 IMPRESSION: Benign CT LUNG RAD AND CT CHEST RECOMMENDATION: Lung-Rad 2 Benign Appearance or Behavior: Continue annual sc reening with LDCT in 12 months. S Modifier (other clinically significant findings): S thoracic aortic aneurysm
== END | disposition home or self-care (01) ==
LOC: RADCTMAIN 13:07
PROVIDERS: ATTEND Family Medicine
DX: Z09 Encounter for follow-up examination after completed treatment for conditions other than malignant neoplasm (principal); Z87.891 Personal history of nicotine dependence
CPT/HCPCS: 71271

== ENCOUNTER 2022-10-08 06:14 | Day surgery (SDC) | payer MEDICARE ==
[2022-10-06 15:09] VITALS: BMI 37.2
[2022-10-08] MEDS ORDERED: LIDOCAINE 1% (10MG/ML) FOR IV START INTRADERMA PRN (07:02)
[2022-10-08] MEDS ORDERED: LACTATED RINGERS 1,000 ML IV SCH (07:02)
[2022-10-08 07:07] VITALS: TEMP 97
[2022-10-08] MEDS ORDERED: PROPOFOL 10 MG/ML 20 ML VIAL IV ONE (07:33)
[2022-10-08] MEDS ORDERED: LIDOCAINE 2% INJ 20 MG/ML (2 ML VIAL) ONE (07:33)
--- NOTE | 2022-10-08 07:59 | P.PCN ---
Date of Procedure: 10/08/22 Procedure(s) Performed: Brief history: Patient is a pleasant 67-year-old white male scheduled for an elective upper endoscopy as well as colonoscopy as a part of evaluation of GERD and screening for colon cancer/history of colon polyps Procedure performed: Esophagogastroduodenoscopy with biopsy Colonoscopy with snare polypectomy Preoperative diagnosis: GERD Screening for colon cancer/history of colon polyps Anesthesia: MAC Procedure: After informed consent was obtained from the patient was brought into the endoscopy unit and IV sedation was administered by anesthesia under continuous monitoring. Initially upper endoscopy was done. The Olympus GF 160 video endoscope was inserted inserted into the mouth and esophagus intubated without any difficulty and was gradually advanced into the stomach and duodenum and carefully examined. The bulb and second part of the duodenum appeared normal. The scope was then withdrawn into the stomach adequately insufflated with air and upon careful examination the antrum had mild gastritis and biopsies were done from this area. Mucosa of the body, cardia and fundus appeared normal. The scope was then withdrawn into the esophagus. The GE junction was located at 40 cm to the incisors. It appeared regular with no erythema erosions or ulcera tions. Rest of the esophagus appeared normal. Patient tolerated the procedure well. At this time the patient continued to remain sedation. Initial digital rectal examination was normal. Olympus CF 160 video colonoscope was then inserted into the rectum and gradually advanced to the cecum without any difficulty. Careful examination was performed as the scope was gradually being withdrawn. The prep was excellent. The cecum, we normal. In the ascending colon there was a 1 cm polyp removed by snare polypectomy. Rest of the ascending colon, transverse colon, descending colon, sigmoid colon and rectum appeared normal. Scattered sigmoid diverticulosis Retroflexion was performed in the rectum and no lesions were noted. Patient tolerated the procedure well. Impression: 1. Upper endoscopy revealed small hiatal hernia and mild gastritis but no evidence of esophagitis. 2. Colonoscopy revealed a 1 cm ascending colon polyp status post polypectomy and scattered sigmoid diverticulosis Recommendations: Findings of this examination were discussed with the patient as well as his family. He was advised to follow with the biopsy results. If the biopsies revealed adenoma, he can have a repeat colonoscopy in 3 years.
[2022-10-08] MEDS ORDERED: IV FLUID CONTINUATION 650 ML IV ONE (08:02)
[2022-10-08 08:20] VITALS: BP 136/78; PULSE 49; RESP 18
== END 2022-10-08 08:47 | disposition home or self-care (01) ==
LOC: ORWHC2ENDO 06:14
PROVIDERS: ATTEND Internal Medicine Gastroenterology
DX: Z12.11 Encounter for screening for malignant neoplasm of colon (principal); K29.50 Unspecified chronic gastritis without bleeding; K57.30 Diverticulosis of large intestine without perforation or abscess without bleeding; K31.A0 Gastric intestinal metaplasia, unspecified; K44.9 Diaphragmatic hernia without obstruction or gangrene; D12.2 Benign neoplasm of ascending colon; K21.9 Gastro-esophageal reflux disease without esophagitis; I25.2 Old myocardial infarction; I25.10 Atherosclerotic heart disease of native coronary artery without angina pectoris; I10 Essential (primary) hypertension; I44.2 Atrioventricular block, complete; J44.9 Chronic obstructive pulmonary disease, unspecified; M19.90 Unspecified osteoarthritis, unspecified site; G40.909 Epilepsy, unspecified, not intractable, without status epilepticus; G47.33 Obstructive sleep apnea (adult) (pediatric); Z79.1 Long term (current) use of non-steroidal anti-inflammatories (NSAID); Z79.83 Long term (current) use of bisphosphonates; Z79.899 Other long term (current) drug therapy; Z88.6 Allergy status to analgesic agent; Z88.5 Allergy status to narcotic agent; Z86.73 Personal history of transient ischemic attack (TIA), and cerebral infarction without residual deficits
CPT/HCPCS: 88305; 45385; 43239; J2704; J2001

== ENCOUNTER → 2022-12-23 | Outpatient (CLI) | payer MEDICARE ==
--- NOTE | 2022-12-23 09:57 | MM ---
Reason for Exam: Clinical finding. Last mammogram was performed 2 year(s) and 9 month(s) ago. Prior Study Comparison: 10/21/2019 Left Diagnostic Ultrasound, [facility]. 04/03/2020 Bilateral Diagnostic Mammogram, [facility]. Tissue Density: The breast tissue is heterogeneously dense. This may lower the sensitivity of mammography. Findings: Analyzed By CAD. Bilateral retroareolar gynecomastia identified with right greater than left. The right has increased from prior exam. No suspicious calcifications or architectural distortion. Overall Assessment: Incomplete: need additional imaging evaluation, BI-RAD 0 Management: Diagnostic Breast Ultrasound of both breasts. A clinical breast exam by your physician is recommended on an annual basis and results should be correlated with mammographic findings. This exam should not preclude additional follow-up of suspicious palpable abnormalities. Results were given to the patient verbally at the time of exam. Note on Angelica scores and lifetime risk: 1. A Angelica score greater than 3% is considered moderate risk. If this is the case, consider specialist referral to assess eligibility for a risk reducing agent. If overall lifetime risk for the development of breast cancer is 20% or higher, the patient may qualify for future screening with alternating mammogram and breast MRI. Electronically signed and approved by: Jcarlos Elizalde D.O.
--- NOTE | 2022-12-23 11:27 | USB ---
Reason for Exam: Additional evaluation requested from abnormal screening. Prior Study Comparison: 04/03/2020 Bilateral Diagnostic Mammogram, [facility]. Findings: Right breast ultrasound demonstrates a 4.0 x 4.1 x 1.1cm hypoechoic gynecomastia at the posterior nipple. Left breast ultrasound demonstrates a 2.6 x 2.3 x 1.5cm hypoechoic gynecomastia at the machine assembler supervisor nipple. Left breast scanned for comparison. Overall Assessment: Benign, BI-RAD 2 Management: Clinical Management of both breasts. Manage on a clinical basis. A clinical breast exam by your physician is recommended on an annual basis and results should be correlated with mammographic findings. This exam should not preclude additional follow-up of suspicious palpable abnormalities. Results were given to the patient verbally at the time of exam. Electronically signed and approved by: Jcarlos Elizalde D.O.
== END | disposition home or self-care (01) ==
LOC: RADMAMWWP 08:09
PROVIDERS: ATTEND Family Medicine
DX: N63.11 Unspecified lump in the right breast, upper outer quadrant (principal); R92.333 Mammographic heterogeneous density, bilateral breasts
CPT/HCPCS: 77066; 76642; G0279; 77062

== ENCOUNTER → 2023-02-12 | Outpatient (CLI) | payer MEDICARE ==
[2023-02-12 18:35] LABS: ALT 12 U/L (10-49); AST 17 U/L (14-35); Albumin 3.9 g/dL (3.8-4.9); Albumin/Globulin Ratio 2.05 Ratio (1.60-3.17); Alkaline Phosphatase 110 U/L (41-126); Bilirubin, Conjugated <0.20 mg/dL (0.20-0.40); Bilirubin,Unconjugated >0.20 mg/dL (0.20-1.00); Chol/HDL Ratio 2.36 Ratio; Globulin 1.9 g/dL (1.6-3.3); Total Bilirubin 0.4 mg/dL (0.3-1.2); Total Protein 5.8 g/dL (6.2-8.2)
== END | disposition home or self-care (01) ==
LOC: LABWHC1 10:43
PROVIDERS: ATTEND Internal Medicine
DX: E78.2 Mixed hyperlipidemia (principal)
CPT/HCPCS: 36415; 80061; 80076

== ENCOUNTER → 2023-04-22 | Outpatient (CLI) | payer MEDICARE ==
[2023-04-22 16:58] LABS: Basophils # (A) 0.02 X 10*3/uL (0.00-0.10); Basophils % (A) 0.5 %; Eosinophils % (A) 2.6 %; HCT 41.1 % (39.6-50.0); HGB 13.4 g/dL (13.0-17.0); Lymphocytes # (A) 1.33 X 10*3/uL (0.90-5.00); Lymphocytes % (A) 34.5 %; MCHC 32.6 g/dL (32.0-37.0); MCV 98.1 FL (80.0-97.0); Mean Platelet Volume 10.6 FL (9.5-12.2); Monocytes # (A) 0.29 X 10*3/uL (0.20-1.00); Monocytes % (A) 7.5 %; NRBC Per 100 WBC 0 X 10*3/uL (0.00-0.01); Neutrophils # (A) 2.11 X 10*3/uL (1.80-7.70); Neutrophils % (A) 54.6 %; Platelet Count 179 X 10*3/uL (140-440); RBC 4.19 X 10*6/uL (4.40-5.60); WBC 3.86 X 10*3/uL (4.50-10.00)
[2023-04-22 17:28] LABS: ALT 7 U/L (10-49); AST 23 U/L (14-35); Albumin 4.1 g/dL (3.8-4.9); Albumin/Globulin Ratio 2.05 Ratio (1.60-3.17); Alkaline Phosphatase 137 U/L (41-126); BUN/Creat Ratio 15.82 Ratio (12.00-20.00); Blood Urea Nitrogen 17.4 mg/dL (9.0-27.0); Carbon Dioxide 26.7 mmol/L (21.6-31.8); Chloride 105 mmol/L (96-109); Chol/HDL Ratio 2.12 Ratio; Glucose 99 mg/dL (70-110); LDL Cholesterol,Calculated 50.7 mg/dL (0.0-131.0); Potassium 4.4 mmol/L (3.5-5.5); Sodium 140 mmol/L (135-145); Total Bilirubin 0.4 mg/dL (0.3-1.2); Total Protein 6.1 g/dL (6.2-8.2); VLDL Calculation 19.74 mg/dL (5.00-40.00)
[2023-04-22 17:37] LABS: PSA Annual Screen 0.437 ng/mL (0.000-4.000)
== END | disposition home or self-care (01) ==
LOC: LABWHC1 09:46
PROVIDERS: ATTEND Family Medicine
DX: Z12.5 Encounter for screening for malignant neoplasm of prostate (principal); Z11.59 Encounter for screening for other viral diseases; I25.10 Atherosclerotic heart disease of native coronary artery without angina pectoris; E78.5 Hyperlipidemia, unspecified
CPT/HCPCS: 86803; 80061; 80053; 85025; 36415; G0103

== ENCOUNTER → 2023-11-05 | Outpatient (CLI) | payer MEDICARE ==
[2023-11-05 13:49] VITALS: BP 170/92; PULSE 50; RESP 16; TEMP 97.6
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
== END ==
LOC: 3 N SLEEP 13:18
PROVIDERS: ATTEND Internal Medicine
CPT/HCPCS: 99211